=== PATIENT | male | born 1955 | race Caucasian/White ===

== ENCOUNTER → 2017-04-07 | Outpatient (CLI) | payer BC, OTHER | END | disposition home or self-care (01) | LOC: PCVCCLINIC 16:02 | PROVIDERS: ATTEND Internal Medicine | DX: I71.2 Thoracic aortic aneurysm, without rupture (principal); E78.5 Hyperlipidemia, unspecified; Z79.82 Long term (current) use of aspirin; Z79.899 Other long term (current) drug therapy; Z87.891 Personal history of nicotine dependence | CPT/HCPCS: 80061; 93005; G0463 ==

== ENCOUNTER → 2017-04-13 | Outpatient (CLI) | payer BC, OTHER ==
--- NOTE | 2017-04-18 13:27 | PCVCIMAG ---
APPROVED REPORT Study performed: 04/13/2017 17:24:51 EXAM: Comprehensive 2D, Doppler, and color-flow Echocardiogram Patient Location: Echo lab Room #: 3Status: routine BSA: 2.38 HR: 67 bpmBP: 132/80 mmHg Rhythm: NSR Risk Factors: Cardiac Risk Factors: Hyperlipidemia Indications THORACIC AORTIC ANEURYSM 2D Dimensions LVEF(%): 82.04 (>50%) IVSd: 8.20 (7-11mm)LVOT Diam: 21.88 (18-24mm) LVDd: 52.60 mm PWd: 5.43 (7-11mm)Ascending Ao: 38.37 (22-36mm) LVDs: 25.69 (25-40mm) Left Atrium: 36.42 (27-40mm) Aortic Root: 32.12 mm LV Single Plane 4CH: 69.07 % LV Single Plane 2CH: 60.48 %Hadley's LVEF: 64.78 % Biplane EF: 66.5 % Volumes Left Atrial Volume (Systole) Single Plane 4CH: 44.90 mLSingle Plane 2CH: 43.44 mL Biplane LA Volume: 47.00 mLLA ESV Index: 19.80 mL/m2 Aortic Valve AoV Peak Bill.: 1.47 m/s AO Peak Gr.: 8.66 mmHgLVOT Max P.64 mmHg LVOT Max V: 0.64 m/s JULIANE Vmax: 1.64 cm2 Mitral Valve E/A Ratio: 0.8 MV Decel. Time: 187.52 ms MV E Max Bill.: 0.64 m/s MV A Bill.: 0.77 m/s MV PHT: 54.38 ms IVRT: 103.81 ms TDI E/Lateral E': 6.40E/Medial E': 7.11 Medial E' Bill.: 0.09 m/s Lateral E' Bill.: 0.10 m/s Pulmonary Valve PV Peak Bill.: 1.02 m/sPV Peak Gr.: 4.15 mmHg Pulmonary Vein P Vein S: 0.66 m/sP Vein A: 0.39 m/s P Vein D: 0.44 m/sP Vein A Dur.: 110.7 msec P Vein S/D Ratio: 1.50 Tricuspid Valve TR Peak Bill.: 2.58 m/s TR Peak Gr.: 26.61 mmHg TV Vmax: 0.73 m/sPA Pressure: 34.00 mmHg Left Ventricle The left ventricle is normal size. There is normal LV segmental wall motion. There is normal left ventricular wall thickness. Left ventricular systolic function is normal. The left ventricular ejection fraction is within the normal range. LVEF is 65-70%. Transmitral Doppler flow pattern suggests impaired LV relaxation. Right Ventricle The right ventricle is normal size. The right ventricular systolic function is normal. Atria The left atrium size is normal. The right atrium size is normal. Aortic Valve The aortic valve is normal in structure. No aortic regurgitation is present. There is no aortic valvular stenosis. Mitral Valve The mitral valve is normal in structure. Trace to mild mitral regurgitation. No evidence of mitral valve stenosis. Tricuspid Valve The tricuspid valve is normal in structure. Trace to mild tricuspid regurgitation. Pulmonic Valve The pulmonary valve is normal in structure. There is no pulmonic valvular regurgitation. Great Vessels The aortic root is normal in size. The ascending aorta is mildly dilated with a peak measurement of 4.0cm. Aortic arch is 3.3 cm and the descending aorta is 2.0cm.. IVC is normal in size and collapses >50% with inspiration. Pericardium There is no pericardial effusion. There is no pleural effusion. <Conclusion> Left ventricular systolic function is normal. There is normal LV segmental wall motion. EF 65%. Grade I diastolic dysfunction The aortic valve is normal in structure. No aortic regurgitation or stenosis The mitral valve is normal in structure. Trace to mild mitral regurgitation. The ascending aorta is mildly dilated with a peak measurement of 4.0cm. Aortic arch is 3.3 cm and the descending aorta is 2.0cm. Pulmonary artery pressure of 30mmHg There is no pericardial effusion.
== END | disposition home or self-care (01) ==
LOC: PCVCIMAG 17:04
PROVIDERS: ATTEND Internal Medicine
DX: I71.2 Thoracic aortic aneurysm, without rupture (principal); E78.5 Hyperlipidemia, unspecified; Q25.49 Other congenital malformations of aorta
CPT/HCPCS: 93306

== ENCOUNTER → 2018-04-18 | Outpatient (CLI) | payer BC, OTHER ==
--- NOTE | 2018-04-18 14:52 | PCVCIMAG ---
APPROVED REPORT Study performed: 04/18/2018 14:08:08 EXAM: Comprehensive 2D, Doppler, and color-flow Echocardiogram Patient Location: Echo lab Status: routine BSA: 2.36 HR: 71 bpmBP: 124/84 mmHg Rhythm: NSR Other Information Study Quality: Adequate Risk Factors: Cardiac Risk Factors: Hyperlipidemia Indications thoracic aortic aneurysm 2D Dimensions IVSd: 14.49 (7-11mm) LVDd: 46.52 mm PWd: 12.54 (7-11mm)Ascending Ao: 38.95 (22-36mm) LVDs: 31.92 (25-40mm) Left Atrium: 36.50 (27-40mm) Aortic Root: 35.83 mm LV Single Plane 4CH: 59.79 % LV Single Plane 2CH: 56.04 % Biplane EF: 57.7 % Volumes Left Atrial Volume (Systole) Single Plane 4CH: 72.36 mLSingle Plane 2CH: 72.42 mL LA ESV Index: 31.00 mL/m2 Aortic Valve AoV Peak Bill.: 1.72 m/s AO Peak Gr.: 11.83 mmHgLVOT Max P.47 mmHg LVOT Max V: 1.17 m/s Mitral Valve E/A Ratio: 1.4 MV Decel. Time: 299.59 ms MV E Max Bill.: 0.84 m/s MV A Bill.: 0.60 m/s IVRT: 79.58 ms Pulmonary Valve PV Peak Bill.: 1.20 m/sPV Peak Gr.: 5.73 mmHg Pulmonary Vein P Vein S: 0.48 m/sP Vein A: 0.31 m/s P Vein D: 0.63 m/sP Vein A Dur.: 138.4 msec P Vein S/D Ratio: 0.76 Tricuspid Valve TR Peak Bill.: 2.55 m/s TR Peak Gr.: 26.07 mmHg Left Ventricle The left ventricle is normal size. There is normal LV segmental wall motion. Mild concentric left ventricular hypertrophy. Left ventricular systolic function is normal. The left ventricular ejection fraction is within the normal range. LVEF is 55-60%. The left ventricular diastolic function is normal. Right Ventricle The right ventricle is normal size. The right ventricular systolic function is normal. Atria The left atrium size is normal. The right atrium size is normal. Aortic Valve The aortic valve is normal in structure. No aortic regurgitation is present. There is no aortic valvular stenosis. Mitral Valve The mitral valve is normal in structure. Mild mitral regurgitation. No evidence of mitral valve stenosis. Tricuspid Valve The tricuspid valve is normal in structure. Mild tricuspid regurgitation with PAP of 33 mmHg. Pulmonic Valve The pulmonary valve is normal in structure. Mild pulmonic regurgitation. Great Vessels The aortic root is normal in size. Mildly dilated ascending aortic aneurysm measuring 3.9 cm. IVC is normal in size and collapses >50% with inspiration. Pericardium There is no pericardial effusion. There is no pleural effusion. <Conclusion> Left ventricular systolic function is normal. There is normal LV segmental wall motion. LVEF is 55-60%. Normal diastolic function The aortic valve is normal in structure. No aortic regurgitation or stenosis The mitral valve is normal in structure. Mild mitral regurgitation. Mild tricuspid regurgitation with pulmonary artery pressure of 33 mmHg. Mildly dilated ascending aortic aneurysm measuring 3.9 cm. There is no pericardial effusion.
== END | disposition home or self-care (01) ==
LOC: PCVCIMAG 14:07
PROVIDERS: ATTEND Internal Medicine
DX: I08.1 Rheumatic disorders of both mitral and tricuspid valves (principal); I71.2 Thoracic aortic aneurysm, without rupture; E78.2 Mixed hyperlipidemia
CPT/HCPCS: 93306

== ENCOUNTER → 2018-05-06 | Outpatient (CLI) | payer BC, OTHER ==
--- NOTE | 2018-05-06 16:44 | PCVCIMAG ---
EXAM: BILATERAL SUPERFICIAL VENOUS DUPLEX INDICATION: Leg pain and swelling. FINDINGS: Right leg: No thrombus in the common femoral, main femoral, or popliteal veins. These veins are compressible. Right Great Saphenous Vein: At the saphenofemoral junction the diameter is 7.0 mm, in the mid thigh it is 6.1 mm, and in the calf it is 6.1 mm. There is not significant venous insufficiency/reflux throughout. Venous insufficiency/reflux duration is 0 seconds. Right Small Saphenous Vein: At the saphenopopliteal junction the diameter is 6.1 mm, and in the calf it is 5.0 mm. There is not significant venous insufficiency/reflux throughout. Venous insufficiency/reflux duration is 0.2 seconds. There is not a cranial extension present. Left leg: No thrombus in the common femoral, main femoral, or popliteal veins. These veins are compressible. Left Great Saphenous Vein: At the saphenofemoral junction the diameter is 6.0 mm, in the mid thigh it is 6.4 mm, and in the calf it is 6.3 mm. There is significant venous insufficiency/reflux throughout. Venous insufficiency/reflux duration is 4.1 seconds. Left Small Saphenous Vein: At the saphenopopliteal junction the diameter is 6.0 mm, and in the calf it is 6.2 mm. There is significant venous insufficiency/reflux throughout. Venous insufficiency/reflux duration is 2.7 seconds. There is not a cranial extension present. IMPRESSION: Right Great Saphenous Vein: No significant venous insufficiency/reflux is present as noted above. Right Small Saphenous Vein: No significant venous insufficiency/reflux is present as noted above. Left Great Saphenous Vein: Significant venous insufficiency/reflux is present as noted above. Left Small Saphenous Vein: Significant venous insufficiency/reflux is present as noted above. LOC:OFFICE
== END | disposition home or self-care (01) ==
LOC: PCVCIMAG 13:48
PROVIDERS: ATTEND Internal Medicine
DX: I87.2 Venous insufficiency (chronic) (peripheral) (principal); I87.8 Other specified disorders of veins; M79.89 Other specified soft tissue disorders
CPT/HCPCS: 93970

== ENCOUNTER → 2019-04-12 | Outpatient (CLI) | payer BC, OTHER ==
--- NOTE | 2019-04-12 16:10 | PCVCIMAG ---
APPROVED REPORT Study performed: 04/12/2019 14:30:21 EXAM: Comprehensive 2D, Doppler, and color-flow Echocardiogram Patient Location: Echo lab BSA: 2.38 HR: 68 bpmBP: 120/84 mmHg Rhythm: NSR Other Information Study Quality: Technically Difficult Risk Factors: Cardiac Risk Factors: HTN Indications Thoracic Aortic Aneurysm 2D Dimensions IVSd: 13.52 (7-11mm)LVOT Diam: 24.63 (18-24mm) LVDd: 41.58 mm PWd: 12.17 (7-11mm)Ascending Ao: 40.51 (22-36mm) LVDs: 27.75 (25-40mm) Left Atrium: 38.29 (27-40mm) Aortic Root: 30.00 mm LV Single Plane 4CH: 65.82 % LV Single Plane 2CH: 63.30 % Volumes Left Atrial Volume (Systole) Single Plane 4CH: 43.89 mLSingle Plane 2CH: 39.75 mL LA ESV Index: 20.00 mL/m2 Aortic Valve AoV Peak Bill.: 1.40 m/s AO Peak Gr.: 7.84 mmHgLVOT Max P.11 mmHg LVOT Max V: 0.88 m/s JULIANE Vmax: 3.00 cm2 Mitral Valve E/A Ratio: 1.0 MV Decel. Time: 177.54 ms MV E Max Bill.: 0.75 m/s MV A Bill.: 0.76 m/s TDI E/Lateral E': 8.33E/Medial E': 8.33 Medial E' Bill.: 0.09 m/s Lateral E' Bill.: 0.09 m/s Pulmonary Valve PV Peak Gr.: 2.53 mmHg Pulmonary Vein P Vein S: 0.50 m/sP Vein A: 0.36 m/s P Vein D: 0.50 m/sP Vein A Dur.: 90.0 msec P Vein S/D Ratio: 1.00 Tricuspid Valve TR Peak Bill.: 2.62 m/s TR Peak Gr.: 27.45 mmHg Left Ventricle The left ventricle is normal size. There is normal LV segmental wall motion. There is normal left ventricular wall thickness. Left ventricular systolic function is normal. The left ventricular ejection fraction is within the normal range. LVEF is 60%. The left ventricular diastolic function is normal. Right Ventricle The right ventricle is normal size. The right ventricular systolic function is normal. Atria The left atrium size is normal. The right atrium size is normal. Aortic Valve The aortic valve is normal in structure. No aortic regurgitation is present. There is no aortic valvular stenosis. Mitral Valve The mitral valve is normal in structure. Trace mitral regurgitation. No evidence of mitral valve stenosis. Tricuspid Valve The tricuspid valve is normal in structure. Trace tricuspid regurgitation. Pulmonary artery pressure is 34mmHg. Pulmonic Valve The pulmonary valve is normal in structure. There is no pulmonic valvular regurgitation. Great Vessels The aortic root is normal in size. The ascending aorta is dilated (4.0cm). IVC is normal in size and collapses >50% with inspiration. Pericardium There is no pericardial effusion. <Conclusion> Left ventricular systolic function is normal. There is normal LV segmental wall motion. LVEF is 60%. Normal diastolic function The aortic valve is normal in structure. No aortic regurgitation or stenosis The mitral valve is normal in structure. Trace mitral regurgitation. The ascending aorta is dilated (4.0cm). There is no pericardial effusion.
== END | disposition home or self-care (01) ==
LOC: PCVCIMAG 14:23
PROVIDERS: ATTEND Internal Medicine
DX: I71.2 Thoracic aortic aneurysm, without rupture (principal); E78.5 Hyperlipidemia, unspecified; I87.2 Venous insufficiency (chronic) (peripheral); Z87.891 Personal history of nicotine dependence; Z79.82 Long term (current) use of aspirin
CPT/HCPCS: 93306